=== PATIENT | male | born 2000 | race Caucasian/White ===

== ENCOUNTER 2022-04-19 21:29 | Emergency (ER) | payer SELFPAY ==
[~2022-04-19] VITALS: Ht 165.1 cm; Wt 63.5 kg
[2022-04-19 21:40] VITALS: BP 140/75
--- NOTE | 2022-04-19 21:43 | NUR ---
to lobby a/w bed ambulatory
[2022-04-19] MEDS ORDERED: AMOX-999 PO (23:15)
== END 2022-04-19 23:47 | disposition home or self-care (01) ==
LOC: MED 21:29
DX: L03.012 Cellulitis of left finger (principal)
CPT/HCPCS: 73140; 99283